=== PATIENT | male | born 1980 | race Caucasian/White ===

== ENCOUNTER 2017-03-24 14:11 | Emergency (ER) | payer OTHER ==
[~2017-03-24] VITALS: Ht 182.9 cm; Wt 137.4 kg
[2017-03-24 15:47] LABS: MEAN CORPUSCULAR HEMOGLOBIN 31.2 pg (27.0-33.0); MEAN CORPUSCULAR HGB CONC 34.7 g/dl (32.0-36.5); MEAN CORPUSCULAR VOLUME 90.1 fl (80.0-96.0); PLATELET COUNT, AUTOMATED 291 k/mm3 (150-450); RED CELL DISTRIBUTION WIDTH 12.2 % (11.5-14.5); WHITE BLOOD COUNT 12.4 K/mm3 (4.0-10.0)
[2017-03-24 15:48] LABS: ANION GAP 6 MEQ/L (8-16); BLOOD UREA NITROGEN 10 MG/DL (7-18); CALCIUM LEVEL 9.2 MG/DL (8.5-10.1); CARBON DIOXIDE LEVEL 30 MEQ/L (21-32); CHLORIDE LEVEL 106 MEQ/L (98-107); CREATININE FOR GFR 1.09 MG/DL (0.70-1.30); GLOMERULAR FILTRATION RATE > 60.0 (>60); GLUCOSE, FASTING 111 MG/DL (70-105); POTASSIUM SERUM 4.2 MEQ/L (3.5-5.1); SODIUM LEVEL 142 MEQ/L (136-145)
[2017-03-24] MEDS ORDERED: ISOVUE-370 76% 100ML VIAL (Q9967) As Ordered ONE (16:08)
[2017-03-24 16:17] LABS: EOSINOPHILS 1 % (0-5)
--- NOTE | 2017-03-24 17:03 | REP ---
CT ANGIOGRAM OF THE CHEST: TECHNIQUE: Axial contrast enhanced images from the thoracic inlet to the upper abdomen using 100 mL Isovue 370 intravenous contrast material with multiplanar reformations. Thoracic aorta is normal in caliber with no aneurysm. There is no evidence of dissection of the thoracic aorta. The pulmonary arteries are not well opacified and I ca not evaluate for pulmonary embolism. Heart is normal in size. There is no evidence of lymphadenopathy in the mediastinal or hilar regions. There is no pleural or pericardial effusion. There is no acute infiltrate in either lung. The visualized osseous structures appear intact. The visualized upper abdominal structures are unremarkable. IMPRESSION: No evidence of thoracic aortic aneurysm or dissection. No acute abnormalities are identified. Signed by Javy Castro MD 03/24/2017 05:14 P
[2017-03-24] MEDS ORDERED: GI COCKTAIL 50ML BTL(HYOSCYAMINE/MAALOX/LIDOCAINE VISCOUS)(1:3:1) PO ONE (17:15)
[2017-03-24] MEDS ORDERED: NS 1,000 ML IV ONE (17:15)
[2017-03-24] MEDS ORDERED: SUCR1SS PO (18:20)
[2017-03-24] MEDS ORDERED: PEPC1TAB4 PO (18:20)
--- NOTE | 2017-03-24 18:20 | ECGEPIP ---
Stationary ECG Study [facility] - ED Test Date: 2017-03-24 Pat Name: SORAIDA ACOSTA Department: Room: - Gender: M Medical Instrument Technician: [email or web address] : 1980 Requested By: Roslyn Beltran Order Number: [id number] Reading MD: Neville Hurd Measurements Intervals Index Rate: 85 P: 58 GA: 164 QRS: 14 QRSD: 94 T: 18 QT: 354 QTc: 422 Interpretive Statements SINUS RHYTHM Electronically Signed On 03-24-2017 18:20:10 EDT by Neville Hurd
[2017-03-24] MEDS ORDERED: ASPI1TAB PO (18:21)
--- NOTE | 2017-03-24 18:21 | ECGEPIP ---
Stationary ECG Study [facility] - ED Test Date: 2017-03-24 Pat Name: SORAIDA ACOSTA Department: Room: - Gender: M Memorandum Statement Clerk: [email or web address] : 1980 Requested By: JOSE L GALLEGO PA-C. Order Number: [id number] Reading MD: Neville Hurd Measurements Intervals [place] Rate: 92 P: 51 TN: 153 QRS: 0 QRSD: 92 T: 20 QT: 324 QTc: 402 Interpretive Statements SINUS RHYTHM Electronically Signed On 03-24-2017 18:21:15 EDT by Neville Hurd
[2017-03-24 18:29] VITALS: BP 145/67
[2017-03-24] MEDS ORDERED: ASPIRIN 81 MG CHEW TABLET PO ONE (18:30)
== END 2017-03-24 19:19 | disposition home or self-care (01) ==
LOC: M ED 15:20
DX: R07.9 Chest pain, unspecified (principal); Z82.49 Family history of ischemic heart disease and other diseases of the circulatory system